=== PATIENT | male | born 1965 | race African-American/Black ===

== ENCOUNTER 2016-10-31 00:06 | Emergency (ER) | payer OTHER ==
[~2016-10-31] VITALS: Ht 172.7 cm; Wt 90.9 kg
[~2016-10-31 00:06] MED LIST: GEMF600T3 PO; HYDR25TA PO; LISI40TA4 PO
[2016-10-31] MEDS ORDERED: ATOR40TA28 PO (00:16)
[2016-10-31 03:08] VITALS: BP 123/87
[2016-10-31 04:28] LABS: BASOPHILS % (AUTO) 0.6 % (0.0-2.0); EOSINOPHILS % (AUTO) 0.9 % (1.0-6.0); HEMATOCRIT 41.3 % (41-53); HEMOGLOBIN 13.8 g/dL (13.5-17.5); LYMPHOCYTES # (AUTO) 1.4 K/uL (1.0-4.8); LYMPHOCYTES % (AUTO) 33.9 % (22.0-44.0); MEAN CORPUSCULAR HGB CONC 33.5 G/dL (31.0-37.0); MEAN CORPUSCULAR VOLUME 95 fL (80-100); MONOCYTES # (AUTO) 0.5 K/uL (0.1-1.0); NEUTROPHILS # (AUTO) 2.3 K/uL (1.8-7.7); NEUTROPHILS % (AUTO) 53.6 % (40.0-70.0); PLATELET COUNT (AUTO) 224 K/uL (150-450); RED BLOOD CELL COUNT(AUTO) 4.33 MIL/uL (4.50-5.90); WHITE BLOOD COUNT (AUTO) 4.2 K/uL (4.5-11.0)
[2016-10-31 04:37] LABS: ANION GAP 13 mmol/L (8-16); CALCIUM, TOTAL 8.4 mg/dL (8.8-10.5); CARBON DIOXIDE 25 mmol/L (22-29); CHLORIDE 101 mmol/L (98-107); CREATININE 1.28 mg/dL (0.60-1.30); GLOMERULAR FILTR. RATE CALC > 60 mL/min (>60); POTASSIUM 3.2 mmol/L (3.5-5.1); SODIUM SERUM 139 mmol/L (136-145); UREA NITROGEN, BLOOD 13 mg/dL (7-18)
[2016-10-31 04:41] LABS: ALANINE AMINOTRANSFERASE 138 U/L (12-78); ALBUMIN 3.9 g/dL (3.4-5.0); ASPARTATE AMINOTRANSFERASE 211 U/L (15-37); BILIRUBIN,TOTAL 1.1 mg/dL (0.1-1.0); TOTAL PROTEIN, SERUM 7.9 g/dL (6.4-8.2)
[2016-10-31] MEDS ORDERED: POTASSIUM CHLORIDE 10% 40 MEQ/30 ML LIQUID UDCUP PO ONE (05:30)
== END 2016-10-31 09:40 | disposition home or self-care (01) ==
LOC: EMS 00:07
DX: F41.9 Anxiety disorder, unspecified (principal); R20.0 Anesthesia of skin; E87.6 Hypokalemia; K70.30 Alcoholic cirrhosis of liver without ascites; R20.2 Paresthesia of skin; I10 Essential (primary) hypertension; E78.00 Pure hypercholesterolemia, unspecified
CPT/HCPCS: 99284

== ENCOUNTER 2016-11-29 09:12 | Emergency (ER) | payer OTHER ==
[~2016-11-29] VITALS: Ht 175.3 cm; Wt 86.4 kg
[~2016-11-29 09:12] MED LIST changes: +ATOR40TA28 PO; -GEMF600T3 PO
[2016-11-29] MEDS ORDERED: KETOROLAC TROMETHAMINE 30 MG/ML VIAL IM ONE (11:45)
[2016-11-29 12:17] VITALS: BP 141/86
== END 2016-11-29 12:32 | disposition home or self-care (01) ==
LOC: EMS 09:14
DX: M10.9 Gout, unspecified (principal); E78.00 Pure hypercholesterolemia, unspecified; I10 Essential (primary) hypertension
CPT/HCPCS: 96372; 99283; J1885

== ENCOUNTER 2017-03-07 05:57 | Emergency (ER) | payer OTHER ==
[~2017-03-07] VITALS: Ht 172.7 cm; Wt 90.0 kg
[2017-03-07] MEDS ORDERED: KETOROLAC TROMETHAMINE 60 MG/2 ML VIAL IM ONE (06:30)
[2017-03-07 06:45] VITALS: BP 133/89
== END 2017-03-07 06:46 | disposition home or self-care (01) ==
LOC: EMS 05:58
DX: M10.079 Idiopathic gout, unspecified ankle and foot (principal); I10 Essential (primary) hypertension; E78.00 Pure hypercholesterolemia, unspecified
CPT/HCPCS: 96372; 99283; J1885

== ENCOUNTER 2017-04-28 01:27 | Emergency (ER) | payer OTHER ==
[~2017-04-28] VITALS: Ht 172.7 cm; Wt 89.0 kg
[2017-04-28] MEDS ORDERED: PROPARACAINE HCL 0.5% 15 ML OPHTHALMIC SOLUTION OD ONE (01:45)
[2017-04-28] MEDS ORDERED: ERYTOO OD (02:07)
[2017-04-28 02:19] VITALS: BP 151/89
[2017-04-28] MEDS ORDERED: PERTUSS(ACELL),DIPH,TET VAC/PF 0.5 ML VIAL IM ONE (02:30)
== END 2017-04-28 02:31 | disposition home or self-care (01) ==
LOC: EMS 01:27
DX: S05.01XA Injury of conjunctiva and corneal abrasion without foreign body, right eye, initial encounter (principal); I10 Essential (primary) hypertension; E78.00 Pure hypercholesterolemia, unspecified; X58.XXXA Exposure to other specified factors, initial encounter; Y93.89 Activity, other specified; Y92.89 Other specified places as the place of occurrence of the external cause; Y99.8 Other external cause status
CPT/HCPCS: 90471; 90715; 96372; 99283

== ENCOUNTER 2017-05-01 04:10 | Emergency (ER) | payer OTHER ==
[~2017-05-01] VITALS: Ht 172.7 cm; Wt 88.6 kg
[~2017-05-01 04:10] MED LIST changes: +ERYTOO OD
[2017-05-01] MEDS ORDERED: INDO25 PO (04:17)
[2017-05-01] MEDS ORDERED: PERCT PO (04:17)
[2017-05-01] MEDS ORDERED: KETOROLAC TROMETHAMINE 60 MG/2 ML VIAL IM ONE (07:00)
[2017-05-01 07:44] VITALS: BP 129/90
== END 2017-05-01 07:46 | disposition home or self-care (01) ==
LOC: EMS 04:12
DX: M10.9 Gout, unspecified (principal); M25.562 Pain in left knee; E78.00 Pure hypercholesterolemia, unspecified; I10 Essential (primary) hypertension
CPT/HCPCS: 29530; 96372; 99283; J1885

== ENCOUNTER 2017-07-20 17:33 | Emergency (ER) | payer OTHER ==
[~2017-07-20] VITALS: Ht 172.7 cm; Wt 88.6 kg
[~2017-07-20 17:33] MED LIST changes: +INDO25 PO; +PERCT PO
[2017-07-20 17:49] LABS: BASOPHILS % (AUTO) 0.7 % (0.0-2.0); EOSINOPHILS % (AUTO) 1.1 % (1.0-6.0); HEMOGLOBIN 13.7 g/dL (13.5-17.5); LYMPHOCYTES # (AUTO) 1.1 K/uL (1.0-4.8); LYMPHOCYTES % (AUTO) 30.2 % (22.0-44.0); MEAN CORPUSCULAR HEMOGLOBIN 32.4 pg (26.0-34.0); MEAN CORPUSCULAR HGB CONC 35.2 G/dL (31.0-37.0); MEAN CORPUSCULAR VOLUME 92 fL (80-100); MONOCYTES # (AUTO) 0.5 K/uL (0.1-1.0); MONOCYTES % (AUTO) 12.7 % (2.0-9.0); NEUTROPHILS # (AUTO) 2.1 K/uL (1.8-7.7); NEUTROPHILS % (AUTO) 55.3 % (40.0-70.0); PLATELET COUNT (AUTO) 251 K/uL (150-450); RED BLOOD CELL COUNT(AUTO) 4.23 MIL/uL (4.50-5.90); WHITE BLOOD COUNT (AUTO) 3.8 K/uL (4.5-11.0)
[2017-07-20 17:58] LABS: ANION GAP 7 mmol/L (8-16); CALCIUM, TOTAL 9.2 mg/dL (8.8-10.5); CARBON DIOXIDE 30 mmol/L (22-29); CHLORIDE 101 mmol/L (98-107); CREATININE 1.01 mg/dL (0.60-1.30); GLOMERULAR FILTR. RATE CALC > 60 mL/min (>60); POTASSIUM 3.2 mmol/L (3.5-5.1); SODIUM SERUM 138 mmol/L (136-145); UREA NITROGEN, BLOOD 10 mg/dL (7-18)
[2017-07-20 18:04] LABS: ALANINE AMINOTRANSFERASE 112 U/L (12-78); ALBUMIN 3.8 g/dL (3.4-5.0); ASPARTATE AMINOTRANSFERASE 167 U/L (15-37); BILIRUBIN,TOTAL 0.7 mg/dL (0.1-1.0); TOTAL PROTEIN, SERUM 7.8 g/dL (6.4-8.2)
[2017-07-20 20:14] VITALS: BP 145/90
[2017-07-20] MEDS ORDERED: POTASSIUM CHLORIDE 20 MEQ ER TABLET PO ONE (20:15)
== END 2017-07-20 20:27 | disposition home or self-care (01) ==
LOC: EMS 17:34
DX: R07.9 Chest pain, unspecified (principal); F41.9 Anxiety disorder, unspecified; E87.6 Hypokalemia; R06.02 Shortness of breath; E78.00 Pure hypercholesterolemia, unspecified; I10 Essential (primary) hypertension
CPT/HCPCS: 93005; 99285

== ENCOUNTER 2017-09-04 14:28 | Emergency (ER) | payer OTHER ==
[~2017-09-04] VITALS: Ht 172.7 cm; Wt 88.6 kg
[2017-09-04] MEDS ORDERED: LIDOCAINE HCL 1% 10 ML VIAL INJ ONE (16:30)
[2017-09-04] MEDS ORDERED: PERTUSS(ACELL),DIPH,TET VAC/PF 0.5 ML VIAL IM ONE (16:30)
[2017-09-04] MEDS ORDERED: BACITRACIN 0.9 GM PACKET OINTMENT TP ONE (16:45)
[2017-09-04 17:00] VITALS: BP 137/85
== END 2017-09-04 17:19 | disposition home or self-care (01) ==
LOC: EMS 14:29
DX: S51.812A Laceration without foreign body of left forearm, initial encounter (principal); E78.00 Pure hypercholesterolemia, unspecified; I10 Essential (primary) hypertension; W50.0XXA Accidental hit or strike by another person, initial encounter; Y93.89 Activity, other specified; Y92.89 Other specified places as the place of occurrence of the external cause; Y99.8 Other external cause status
CPT/HCPCS: 12002; 90471; 90715; 99283; J3490

== ENCOUNTER 2017-12-22 06:39 | Emergency (ER) | payer OTHER ==
[~2017-12-22] VITALS: Ht 172.7 cm; Wt 93.2 kg
[~2017-12-22 06:39] MED LIST changes: -ERYTOO OD
[2017-12-22 06:43] VITALS: BP 152/97
[2017-12-22] MEDS ORDERED: COLCHICINE 0.6 MG TABLET PO ONE (07:00)
== END 2017-12-22 08:20 | disposition home or self-care (01) ==
LOC: EMS 06:39
DX: M10.9 Gout, unspecified (principal); M79.671 Pain in right foot; E78.00 Pure hypercholesterolemia, unspecified; I10 Essential (primary) hypertension
CPT/HCPCS: 99284

== ENCOUNTER 2018-02-10 05:34 | Emergency (ER) | payer OTHER ==
[~2018-02-10] VITALS: Ht 172.7 cm; Wt 89.5 kg
[2018-02-10 06:05] VITALS: BP 130/88
== END 2018-02-10 06:33 | disposition home or self-care (01) ==
LOC: EMS 05:35
DX: M54.6 Pain in thoracic spine (principal); E78.00 Pure hypercholesterolemia, unspecified; I10 Essential (primary) hypertension; Z79.899 Other long term (current) drug therapy
CPT/HCPCS: 99283

== ENCOUNTER 2018-03-20 00:12 | Emergency (ER) | payer OTHER ==
[~2018-03-20] VITALS: Ht 172.7 cm; Wt 89.0 kg
[~2018-03-20 00:12] MED LIST changes: -PERCT PO
[2018-03-20 00:13] VITALS: BP 151/101
[2018-03-20] MEDS ORDERED: AMOX TR/POT CLAV 875 MG/125 MG TABLET PO ONE (00:45)
[2018-03-20] MEDS ORDERED: MUPIROCIN CALCIUM 2% 22 GM OINTMENT TP ONE (00:45)
== END 2018-03-20 01:00 | disposition home or self-care (01) ==
LOC: EMS 00:12
DX: S51.851A Open bite of right forearm, initial encounter (principal); S10.91XA Abrasion of unspecified part of neck, initial encounter; S20.419A Abrasion of unspecified back wall of thorax, initial encounter; I10 Essential (primary) hypertension; E78.00 Pure hypercholesterolemia, unspecified; Y04.1XXA Assault by human bite, initial encounter; Y93.89 Activity, other specified; Y92.89 Other specified places as the place of occurrence of the external cause; Y99.8 Other external cause status
CPT/HCPCS: 99283

== ENCOUNTER 2018-05-21 00:37 | Emergency (ER) | payer OTHER ==
[~2018-05-21] VITALS: Ht 172.7 cm; Wt 89.5 kg
[~2018-05-21 00:37] MED LIST changes: +LOPE2 PO
[2018-05-21] MEDS ORDERED: ALLO100T PO (01:05)
[2018-05-21] MEDS ORDERED: KETOROLAC TROMETHAMINE 30 MG/ML VIAL IM ONE (03:30)
[2018-05-21 06:23] VITALS: BP 126/88
== END 2018-05-21 06:31 | disposition home or self-care (01) ==
LOC: EMS 00:38
DX: S09.90XA Unspecified injury of head, initial encounter (principal); E78.00 Pure hypercholesterolemia, unspecified; I10 Essential (primary) hypertension; M10.9 Gout, unspecified; Z79.899 Other long term (current) drug therapy; Y04.0XXA Assault by unarmed brawl or fight, initial encounter
CPT/HCPCS: 70450; 96372; 99284; J1885

== ENCOUNTER 2018-06-04 07:29 | Emergency (ER) | payer OTHER ==
[~2018-06-04] VITALS: Ht 172.7 cm; Wt 86.4 kg
[~2018-06-04 07:29] MED LIST changes: +ALLO100T PO
[2018-06-04 09:21] VITALS: BP 150/93
[2018-06-04] MEDS ORDERED: KETOROLAC TROMETHAMINE 60 MG/2 ML VIAL IM ONE (10:00)
== END 2018-06-04 10:26 | disposition home or self-care (01) ==
LOC: EMS 07:30
DX: M10.9 Gout, unspecified (principal); M25.572 Pain in left ankle and joints of left foot; M25.472 Effusion, left ankle; E78.00 Pure hypercholesterolemia, unspecified; I10 Essential (primary) hypertension; Z79.899 Other long term (current) drug therapy
CPT/HCPCS: 96372; 99283; J1885

== ENCOUNTER 2021-05-19 04:46 | Emergency (ER) | payer OTHER ==
[~2021-05-19] VITALS: Ht 172.7 cm; Wt 90.9 kg
[~2021-05-19 04:46] MED LIST changes: -ALLO100T PO; +ALLO100T2 PO; +INDO-16 PO; -INDO25 PO; -LISI40TA4 PO; +LISI40TA9 PO
[2021-05-19 04:54] VITALS: BP 155/88
== END 2021-05-19 05:45 | disposition home or self-care (01) ==
LOC: EMS 04:47
DX: H11.31 Conjunctival hemorrhage, right eye (principal); I10 Essential (primary) hypertension; E78.00 Pure hypercholesterolemia, unspecified; Z79.899 Other long term (current) drug therapy
CPT/HCPCS: 99282; Z7502

== ENCOUNTER 2023-07-01 16:11 | Emergency (ER) | payer OTHER ==
[~2023-07-01] VITALS: Ht 172.7 cm; Wt 100.0 kg
[~2023-07-01 16:11] MED LIST changes: +ALLO-97 PO; -ALLO100T2 PO; +LOPE-232 PO; -LOPE2 PO
[2023-07-01 16:13] VITALS: TEMP 98.3
[2023-07-01] MEDS ORDERED: PERTUSS(ACELL),DIPH,TET VAC/PF 0.5 ML SYRINGE IM. ONE (18:00)
[2023-07-01] MEDS ORDERED: LIDOCAINE/PF 1% 30 ML VIAL SQ ONE (18:00)
[2023-07-01 19:16] VITALS: BP 132/86; PULSE 80; RESP 16
[2023-07-01] MEDS ORDERED: TraMADol HCL 50 MG TABLET PO ONE (19:30)
== END 2023-07-01 19:41 | disposition home or self-care (01) ==
LOC: EMS 16:14
DX: S01.91XA Laceration without foreign body of unspecified part of head, initial encounter (principal); F10.129 Alcohol abuse with intoxication, unspecified; E78.00 Pure hypercholesterolemia, unspecified; I10 Essential (primary) hypertension; W01.0XXA Fall on same level from slipping, tripping and stumbling without subsequent striking against object, initial encounter; Y93.89 Activity, other specified; Y92.89 Other specified places as the place of occurrence of the external cause; Y99.8 Other external cause status
CPT/HCPCS: 99285; 70450; 72125; 90715; 90471; 12004; J3490

== ENCOUNTER 2023-07-15 05:42 | Emergency (ER) | payer OTHER ==
[~2023-07-15] VITALS: Ht 172.7 cm; Wt 91.0 kg
[2023-07-15 05:46] VITALS: TEMP 98.2
[2023-07-15 05:55] VITALS: BP 143/86; PULSE 92; RESP 14
== END 2023-07-15 07:10 | disposition home or self-care (01) ==
LOC: EMS 05:43
DX: S00.90XD Unspecified superficial injury of unspecified part of head, subsequent encounter (principal); E78.00 Pure hypercholesterolemia, unspecified; I10 Essential (primary) hypertension; F10.90 Alcohol use, unspecified, uncomplicated; Z48.02 Encounter for removal of sutures; X58.XXXD Exposure to other specified factors, subsequent encounter; Y90.9 Presence of alcohol in blood, level not specified
CPT/HCPCS: 99281; Z7502